=== PATIENT | female | born 1985 | race African-American/Black ===

== ENCOUNTER 2018-02-01 18:58 | Emergency (ER) | payer MEDICAID ==
[~2018-02-01] VITALS: Ht 149.9 cm; Wt 68.5 kg
[2018-02-01] MEDS ORDERED: DEPAKOTE500 MG PO (19:20)
[2018-02-01] MEDS ORDERED: KEPPRA 500 MG500 M1 PO (19:20)
[2018-02-01 19:31] LABS: URINE BILIRUBIN NEGATIVE (Negative); URINE BLOOD 1+ (Negative); URINE CLARITY CLEAR; URINE COLOR YELLOW; URINE GLUCOSE-RANDOM NEGATIVE (Negative); URINE KETONES NEGATIVE (Negative); URINE LEUKOCYTES-REFLEX 1+ (Negative); URINE NITRITE-REFLEX NEGATIVE (Negative); URINE PROTEIN NEGATIVE (Negative); URINE SPECIFIC GRAVITY 1.015 (1.005-1.030); URINE UROBILINOGEN 0.2 E.U./dl (0.2-1.0)
[2018-02-01 19:40] LABS: AMP/METHAMP Negative (Negative); BARBITURATES Negative (Negative); BENZODIAZEPINES Negative (Negative); COCAINE Negative (Negative); METHADONE Negative (Negative); OPIATES Negative (Negative); PCP Negative (Negative); THC Negative (Negative)
[2018-02-01 19:41] LABS: SQUAMOUS >10 Many /LPF (0-3)
[2018-02-01 19:42] LABS: CASTS None Seen /LPF (None Seen); CRYSTALS None Seen /LPF (None Seen); URINE RBC 3-10 Few /HPF (0-2); URINE WBC-REFLEX 6-15 Few /HPF (0-5)
[2018-02-01 19:46] LABS: ABSOLUTE EOSINOPHILS 0.1 thou/uL (0.0-0.7); ABSOLUTE LYMPHOCYTES 2.5 thou/uL (0.8-5.3); ABSOLUTE MONOCYTES 0.5 thou/uL (0.0-1.2); ABSOLUTE NEUTROPHILS 4.6 thou/uL (1.6-8.1); BASOPHILS 0.6 %; HEMATOCRIT 40.8 % (37.0-47.0); HEMOGLOBIN 13.5 gm/dL (12.0-15.0); LYMPHOCYTES 32.8 %; MCH 30.6 pg (26.0-34.0); MCHC 33.2 g/dL (28.0-37.0); MCV 92.2 fL (80.0-100.0); MONOCYTES 6.1 %; MPV 8.2 fl. (7.2-11.1); NUCLEATED RBCS 0 /100WBC; PLATELET COUNT* 209 thou/uL (150-400); POLYS 59.5 %; RBC 4.42 mil/uL (4.20-5.00); WBC 7.7 thou/uL (4.0-11.0)
[2018-02-01 19:51] LABS: CALCIUM 8.8 mg/dL (8.5-10.1); CREATININE 0.7 mg/dL (0.6-1.3)
[2018-02-01 19:56] LABS: ALBUMIN 3.9 g/dL (3.4-5.0); TOTAL BILIRUBIN 0.2 mg/dL (<0.1-1.0)
[2018-02-01] MEDS ORDERED: DOXYCYCLINE 10100 MG PO (20:15)
[2018-02-01] MEDS ORDERED: FLAGYL500 MG PO (20:15)
[2018-02-01 20:58] VITALS: BP 121/82
== END 2018-02-01 21:02 | disposition home or self-care (01) ==
LOC: M.ERS 18:58
PROVIDERS: Emergency Medicine
DX: N39.0 Urinary tract infection, site not specified (principal); A59.9 Trichomoniasis, unspecified; I10 Essential (primary) hypertension; F17.210 Nicotine dependence, cigarettes, uncomplicated

== ENCOUNTER 2018-08-06 16:27 | Emergency (ER) | payer MEDICAID ==
[~2018-08-06] VITALS: Ht 157.5 cm; Wt 73.8 kg
[~2018-08-06 16:27] MED LIST: DEPAKOTE500 MG PO; DOXYCYCLINE 10100 MG PO; FLAGYL500 MG PO; KEPPRA 500 MG500 M1 PO
[2018-08-06 17:03] LABS: ABSOLUTE BASOPHILS 0.1 thou/uL (0.0-0.2); ABSOLUTE EOSINOPHILS 0.1 thou/uL (0.0-0.7); ABSOLUTE LYMPHOCYTES 2.1 thou/uL (0.8-5.3); ABSOLUTE MONOCYTES 0.4 thou/uL (0.0-1.2); ABSOLUTE NEUTROPHILS 5.2 thou/uL (1.6-8.1); BASOPHILS 0.7 %; EOSINOPHILS 0.8 %; HEMATOCRIT 44.3 % (37.0-47.0); HEMOGLOBIN 14.6 gm/dL (12.0-15.0); LYMPHOCYTES 26.6 %; MCHC 32.9 g/dL (28.0-37.0); MCV 91.2 fL (80.0-100.0); MONOCYTES 5.7 %; MPV 8.9 fl. (7.2-11.1); NUCLEATED RBCS 0 /100WBC; PLATELET COUNT* 186 thou/uL (150-400); POLYS 66.2 %; RBC 4.86 mil/uL (4.20-5.00); RDW-CV 14.2 % (10.5-14.5); WBC 7.8 thou/uL (4.0-11.0)
[2018-08-06 17:07] LABS: CREATININE 0.8 mg/dL (0.6-1.3); POTASSIUM 4.1 mmol/L (3.5-5.1)
[2018-08-06 17:12] LABS: ALBUMIN 3.9 g/dL (3.4-5.0); TOTAL BILIRUBIN 0.2 mg/dL (<0.1-1.0); TOTAL PROTEIN 7.9 g/dL (6.4-8.2)
[2018-08-06 17:46] VITALS: BP 129/86
--- NOTE | 2018-08-07 10:04 | EKG ---
[place] [address] ELECTROCARDIOGRAM REPORT Name: ENRIQUE FRENCH [id number] Admission: 08/06/18 Attend Phys: Discharge: 08/06/18 Date of : 89 Report #: [id number] THIS REPORT FOR: //name// [facility] ED Test Date: 2018-08-06 Test Time: 16:48:39 Pat Name: ENRIQUE FRENCH Department: Room: Gender: F [employer]: JOE : 1985 Requested By: Mendoza Ambriz Order Number: [id number] MD: Leonides Sky Measurements Intervals [place] Rate: 89 P: 38 NH: 109 QRS: 27 QRSD: 78 T: 45 QT: 349 QTc: 425 Interpretive Statements Sinus rhythm Short [place] interval No previous ECG available for comparison Electronically Signed On 08-07-2018 10:04:37 CDT by Leonides Sky [email or web address] <ELECTRONICALLY SIGNED> By: Leonides Sky MD, [facility] 08/07/18 1004 [id number] [id number] Leonides Sky MD, FACC /EPI
== END 2018-08-06 17:46 | disposition home or self-care (01) ==
LOC: M.ERS 16:27
PROVIDERS: Family Medicine
DX: R56.9 Unspecified convulsions (principal); I10 Essential (primary) hypertension